=== PATIENT | male | born 1985 | race Two or more races ===

== ENCOUNTER 2017-07-05 07:16 | Emergency (ER) | payer SELFPAY ==
[~2017-07-05] VITALS: Ht 182.9 cm; Wt 99.8 kg
[2017-07-05 08:37] VITALS: BP 120/67
[2017-07-05] MEDS ORDERED: KETOROLAC TROMETH 60MG/2ML VIAL IM ONE (08:45)
== END 2017-07-05 08:36 | disposition home or self-care (01) ==
LOC: ER 07:16
DX: R10.9 Unspecified abdominal pain (principal); M79.1 Myalgia
CPT/HCPCS: 74176; 96372; 99284; J1885